=== PATIENT | female | born 1950 | race Caucasian/White ===

== ENCOUNTER → 2016-06-01 | Outpatient (CLI) | payer MEDICARE, OTHER | LOC: LAB 08:01 | PROVIDERS: ATTEND Family Medicine | DX: E11.9 Type 2 diabetes mellitus without complications (principal) | CPT/HCPCS: 36415; 83036 ==

== ENCOUNTER → 2016-06-01 | Outpatient (REF) | payer MEDICARE, OTHER ==
[2016-06-01 11:37] LABS: BASOPHILS % (AUTO) 0 % (0-2); EOSINOPHILS # (AUTO) 0.2 10^3uL; EOSINOPHILS % (AUTO) 4 % (0-4); LYMPHOCYTES # (AUTO) 1.2 X10^3; MEAN CORPUSCULAR HEMOGLOBIN 31.1 PG (26.0-34.0); MEAN CORPUSCULAR HGB CONC 34.2 g/dL (31.0-37.0); MEAN CORPUSCULAR VOLUME 91 FL (80-100); MEAN PLATELET VOLUME 10.6 FL (6.0-9.5); MONOCYTES # (AUTO) 0.5 X10^3; MONOCYTES % (AUTO) 8 % (3-11); NEUTROPHILS # (AUTO) 3.9 X10^3; NEUTROPHILS % (AUTO) 68 % (51-67); PLATELET COUNT 314 10^3uL (150-450); WHITE BLOOD COUNT 5.82 10^3uL (4.0-11.0)
[2016-06-01 12:07] LABS: ALBUMIN 4.1 g/dL (3.4-5.0); ANION GAP 15.6 MEQ/L (3-15); CALCULATED IONIZED CALCIUM 4.3 mg/dL (3.8-4.6)
[2016-06-01 12:35] LABS: ERYTHROCYTE SEDIMENTATION RT* 20 mm/hr (0-23)
== END ==
LOC: LAB 11:11
PROVIDERS: ATTEND Family Medicine
DX: G04.89 Other myelitis (principal); I10 Essential (primary) hypertension; E03.8 Other specified hypothyroidism; H53.121 Transient visual loss, right eye; R53.83 Other fatigue; E11.9 Type 2 diabetes mellitus without complications
CPT/HCPCS: 80053; 84443; 85025; 85652; 86140

== ENCOUNTER → 2016-06-03 | Outpatient (CLI) | payer MEDICARE, OTHER | LOC: RAD 13:56 | PROVIDERS: ATTEND Family Medicine | DX: I10 Essential (primary) hypertension (principal); H53.121 Transient visual loss, right eye; I65.23 Occlusion and stenosis of bilateral carotid arteries | CPT/HCPCS: 93880 ==